=== PATIENT | male | born 1935 | race Caucasian/White ===

== ENCOUNTER → 2016-09-09 | Outpatient (CLI) | payer MEDICARE, BC ==
[2016-09-09 08:49] LABS: CHLORIDE,CL 106 mmol/L (98-110); SODIUM,NA 141 mmol/L (136-146)
== END ==
LOC: MW.CHFP 08:04
PROVIDERS: ATTEND Student in an Organized Health Care Education/Training Program
DX: I10 Essential (primary) hypertension (principal); E87.6 Hypokalemia; L98.9 Disorder of the skin and subcutaneous tissue, unspecified
CPT/HCPCS: 36415; 80053; 80061; 99214

== ENCOUNTER 2022-01-01 10:20 | Emergency (ER) | payer MEDICARE, BC ==
[2022-01-01] MEDS ORDERED: Sodium Chloride 0.9% 1,000 ML IV ONE ×2 (10:34→11:52)
[2022-01-01 11:15] LABS: CARBON DIOXIDE,CO2 27.9 mmol/L (21.0-32.0); POTASSIUM,K 3.1 mmol/L (3.5-5.1)
[2022-01-01] MEDS ORDERED: Potassium Chloride 20 MEQ in Premix Bag 1 BAG IV ONE (12:00)
[2022-01-01] MEDS ORDERED: Iopamidol 755 MG/ML 500 ML Multipack Bottle IVPUSH STA (13:45)
== END 2022-01-01 16:00 ==
LOC: MW.ED 10:20
DX: C34.90 Malignant neoplasm of unspecified part of unspecified bronchus or lung (principal); Z20.822 Contact with and (suspected) exposure to COVID-19; E03.8 Other specified hypothyroidism
CPT/HCPCS: 36415; 36591; 71045; 71275; 80053; 82803; 83605; 83735; 84443; 84484; 85025; 85610; 85730; 93005; 96361; 96365; 96366; 99285; J3480; J7030; Q9967; U0002; 93010